=== PATIENT | male | born 1965 | race Caucasian/White ===

== ENCOUNTER → 2020-05-10 16:55 | Outpatient (BNVA) | payer OTHER, SELFPAY | PROVIDERS: Family Provider Internal Medicine; PCP Internal Medicine; Visit Provider Nurse Practitioner Family | DX: J06.9 Acute upper respiratory infection, unspecified (principal) | CPT/HCPCS: 87400; 87426 ==

== ENCOUNTER 2020-05-11 10:01 | Outpatient (CLI) | payer OTHER, SELFPAY ==
[2020-05-11 10:04] VITALS: BP 132/88; PULSE 72; RESP 16; TEMP 36.6; O2SAT 95
[2020-05-11 10:21] VITALS: BMI 36.9
--- NOTE | 2020-05-11 10:21 | AMB.MCA ---
Patient Information Referred by: Xavier Symptom onset date: 05/08/20 COVID 19 common symptoms: positive fever(s), chills, cough, non-productive cough, fatigue, body aches, headache(s) and nasal congestion COVID 19 other sytmptoms: negative chest pressure, chest pain, pleuritic pain, requiring oxygen, requiring more oxygen, respiratory distress, cyanosis, lethargy, confusion, new neurological complaints or other concerning symptoms Severity: moderate Treatment prior to arrival: none [facility] COVID test results: SARS-CoV-2 Antigen (Rapid) Positive (Negative) H 05/10/20 16:30 05/10/20 outside results available, scanned Criteria/Plan Inclusion/Exclusion Criteria weight >/= 40kg, + direct test </= 10 days ago and symptom onset </= 10 days ago BMI >/= 35 not requiring hospitalization, not requiring oxygen (if not chronically on oxygen) and no increase oxygen requirement (if chronically on oxygen) Patient education patient/caregiver received/reviewed fact sheet, Emergency Use Authorization/unapproved drug status discussed with patient/caregiver, alternatives to this treatment discussed with patient/caregiver, risks and benefits of medication reviewed with patient/caregiver, patient/caregiver given opportunity for questions, which were answered and patient/caregiver consents to receiving Monoclonal Antibody Treatment Plan for treatment Meets criteria for Monoclonal Antibody infusion Ordering Monoclonal Antibody infusion for today
[2020-05-11 10:22] VITALS: BP 153/92; PULSE 77; RESP 15; TEMP 37.1; O2SAT 94
[2020-05-11 10:51] VITALS: BP 109/85; PULSE 70; RESP 16; TEMP 36.9; O2SAT 96
[2020-05-11 11:05] VITALS: BP 130/85; PULSE 69; RESP 16; TEMP 36.9; O2SAT 94
--- NOTE | 2020-05-11 11:51 | PC.NURSE ---
Prn note Patient BAM infusion stopped at 1139. No side effects noted, he tolerated infusion well. Will continue to monitor post infusion.
[2020-05-11 12:26] VITALS: BP 132/88; PULSE 72; RESP 16; TEMP 36.6; O2SAT 95
--- NOTE | 2020-05-19 11:32 | DCPLANNER ---
Addendum entered by Lin Guerra 05/24/20 13:53: reservations manager called to check on patient after getting the BAM infusion. Patient stated that he is doing fine, he stated that he is back to work. Not been admitted anywhere. Original Note: reservations manager had message that patient received the BAM infusion. reservations manager called to check on patient after receiving the infusion. Patient stated that he was feeling good. Before the infusion he had a runny nose, fever, cough, body aches. After the infusion, he stated that he was feeling pretty good, still has a cough, stuffy head, no fever. Patient stated that he is feeling better than he was.
== END 2020-05-11 12:28 | disposition home or self-care (01) ==
PROVIDERS: PCP Internal Medicine; Visit Provider Nurse Practitioner Family
DX: U07.1 COVID-19 (principal)
CPT/HCPCS: J7050